=== PATIENT | male | born 1940 | race Caucasian/White ===

== ENCOUNTER 2019-07-26 15:34 | Emergency (ER) | payer MEDICARE, OTHER, SELFPAY ==
--- NOTE | ~2019-07-26 | XR_ITS ---
EXAMINATION: XR lumbar spine 2-3V DATE: 07/26/2019 17:51 INDICATION: Back pain. Fall. TECHNIQUE: 3 views of the lumbar spine were obtained. COMPARISON: CT abdomen and pelvis 05/02/2018 FINDINGS: There is 3 degrees levocurvature of lumbar spine. There are chronic bilateral L5 pars defec ts. There is 7 mm anterolisthesis of L5 on S1. There is mildly decreased disc height at L5-S1. There are endplate osteophytes at most levels. The facet joints are unremarkable. IMPRESSION: 1. Chronic bilateral L5 pars defects with grade 1 anterolisthesis of L5 on S1. 2. Mild lumbar spondylosis. Reviewed, dictated and finalized at location A.
--- NOTE | ~2019-07-26 | XR_ITS ---
EXAMINATION: XR thoracic spine 3V DATE: 07/26/2019 17:51 INDICATION: Back pain. TECHNIQUE: 3 views of thoracic spine were obtained. COMPARISON: Chest 2 views 10/12/2018 FINDINGS: There is 5 degrees levocurvature of thoracic spine. There is kyphosis of thoracic spine. Th ere is mild chronic anterior wedging of multiple thoracic vertebral bodies. Intervertebral disc heigh ts are normal in thoracic spine. There are bridging endplate osteophytes at multiple levels in the sp ine, consistent with diffuse idiopathic skeletal hyperostosis (DISH). IMPRESSION: 1. DISH. 2. Thoracic kyphosis. Reviewed, dictated and finalized at location A.
[2019-07-26 15:40] VITALS: BP 143/54; PULSE 75; RESP 12; TEMP 36.7; O2SAT 97
--- NOTE | 2019-07-26 16:06 | ECG_ITS ---
Measurements Intervals [place] Rate: 71 P: 55 [place]: 185 QRS: -19 QRSD: 97 T: 30 QT: 413 QTc: 451 Interpretive Statements SINUS RHYTHM VOLTAGE CRITERIA FOR LVH BORDERLINE ECG Electronically Signed On 07-26-2019 17:33:36 CDT by Fermin Mancia D.O.
--- NOTE | 2019-07-26 16:07 | ED.FALL ---
HPI - Fall General Chief Complaint: Fall Stated Complaint: HEAT RELATED ILLNESS Time Seen by Provider: 07/26/19 15:41 Source: patient and family Mode of arrival: EMS Limitations: no limitations History of Present Illness HPI Narrative: This patient is an 78 year old male with history of hypothyroid who presents for evaluation s/p fall. PAtient states he was out working for a while in the heat. He was trying to load his truck when he states he fell. He Denies hitting his head or losing consciousness. He states he was just unable to get up due to chronic knee problems. His states he had to lay out there for 1.5 hours until someone came to help. She also reports patient was found to have temperature with skin probe of 102. Patient has no complaints. MD complaint: fall Related Data Allergies Allergy/AdvReac Type Severity Reaction Status Date / Time No Known Allergies Allergy Verified 07/26/19 15:40 Review of Systems Review of Systems: All systems reviewed & are unremarkable except as noted in HPI and below Constitutional: Constitutional: Denies chills and Denies fever(s) ENT: Denies dysphagia and Denies dizziness Cardiovascular: Cardiovascular: Denies chest pain Respiratory: Respiratory: Denies cough and Denies dyspnea Gastrointestinal: Gastrointestinal: Denies abdominal pain and Reports nausea Genitourinary: Genitourinary: Denies oliguria and Denies urinary incontinence Neurologic: Denies dizziness PMFSH Social History Social History Gender identity (if verbalized by the patient): Male Exam Narrative: Exam Narrative: GENERAL: Well-appearing, well-nourished, and in no acute distress. HEAD: Normocephalic, atraumatic EYES: PERRLA and EOMI, conjunctiva clear without discharge EARS: TM's clear bilaterally without erythema or dullness NOSE: Nares clear, no rhinorrhea or epistaxis THROAT:Mucous membranes moist, Oropharynx normal without erythema, exudate, peritonsillar swelling or fluctuance NECK: Supple, without lymphadenopathy or mass RESPIRATORY: No respiratory distress, Airway patent, Respirations non-labored, Clear to auscultation without rales, rhonchi or wheeze HEART: Regular rate and rhythm. No murmur heard. Normal peripheral pulses. ABDOMEN: Soft, nontender, nondistended, normal active bowel sounds. No masses. No rebound or guarding, No organomegaly. EXTREMITIES: No edema, normal strength with full range of motion. SKIN: Warm, dry, NEURO: Alert and oriented x3. CN 2-12 grossly intact. No focal deficits. PSYCH: Normal mood and affect. Back/Spine/Pelvis: Other: mild abrasion to mid back, mild midline tenderness at t12 Course Reevaluation(s) Reevaluation #1: Patient states he feels fine and he has no complaints. He has been up walking around with out difficulty. He and denies any questions or concerns. Date: 07/26/19 Time: 18:40 Vital Signs Vital signs: Vital Signs Temperature 98.0 F 07/26/19 15:40 Pulse Rate 75 07/26/19 15:40 Respiratory Rate 12 07/26/19 15:40 Blood Pressure 143/54 H 07/26/19 15:40 Pulse Oximetry 97 07/26/19 15:40 Temperature 98.0 F 07/26/19 15:40 Pulse Rate 71 07/26/19 17:26 Respiratory Rate 12 07/26/19 15:40 Blood Pressure 136/57 L 07/26/19 17:26 Pulse Oximetry 97 07/26/19 15:40 MDM - Fall Lab Data Attestation: I reviewed the patient's lab results. Result diagrams: 07/26/19 16:21 07/26/19 16:21 Labs: Lab Results 07/26/19 07/26/19 Range/Units 16:21 16:21 WBC 6.7 (4.5-10.0) K/mm3 RBC 3.53 L (4.6-6.20) M/mm3 Hgb 11.6 L (14.0-18.0) g/dL Hct 34.7 L (42.0-52.0) % MCV 98.3 (80-100) fl MCH 32.9 (26-34) pg MCHC 33.4 (32-36) g/dl RDW 14.1 (11.5-14.5) % Plt Count 185 (150-375) k/mm3 MPV 9.6 (7.4-10.4) fl Immature Gran % (Auto) 0.4 (0-0.5) % Neut % (Auto) 77.8 H (45.5-73.1) % Lymph % (Auto) 12.4 L (18.3-44.2) % Bee % (Auto)
[2019-07-26] MEDS: SODIUM CHLORIDE 0.9% IV 1,000 ML 999 ML IV CONT (16:18)
[2019-07-26 16:27] LABS: Basophils Percent Auto 0.6 % (0.2-1.2); Eosinophils Absolute Auto 0.2 K/mm3 (0-0.3); Hematocrit 34.7 % (42.0-52.0); Hemoglobin 11.6 g/dL (14.0-18.0); Immature Granulocyte Absolute 0.03 K/mm3 (0.00-0.031); Immature Granulocyte Percent A 0.4 % (0-0.5); Lymphocytes Absolute Auto 0.83 K/mm3 (0.9-3.2); Lymphocytes Percent Auto 12.4 % (18.3-44.2); Mean Corpuscular HGB Conc 33.4 g/dl (32-36); Mean Corpuscular Hemoglobin 32.9 pg (26-34); Mean Corpuscular Volume 98.3 fl (80-100); Mean Platelet Volume 9.6 fl (7.4-10.4); Monocytes Absolute Auto 0.4 K/mm3 (0.1-0.6); Monocytes Percent Auto 5.8 % (2.6-8.5); Neutrophils Absolute Auto 5.2 K/mm3 (1.3-6.7); Neutrophils Percent Auto 77.8 % (45.5-73.1); Platelet Count Result 185 k/mm3 (150-375); Red Blood Count 3.53 M/mm3 (4.6-6.20); Red Cell Distribution Width 14.1 % (11.5-14.5); White Blood Count 6.7 K/mm3 (4.5-10.0)
[2019-07-26 16:38] LABS: Alanine Aminotransferase 18 U/L (4-50); Albumin Level 4.1 g/dL (3.5-5.1); Alkaline Phosphatase 92 U/L (38-126); Aspartate Amino Transferase 19 U/L (17-59); Bilirubin,Total 0.4 mg/dL (0.2-1.3); Blood Urea Nitrogen 21 mg/dL (9-20); Calcium 9.2 mg/dL (8.4-10.2); Carbon Dioxide 25 mmol/L (22-30); Chloride 103 mmol/L (98-107); Creatine Kinase 60 U/L (55-170); Estimated CRCL calculation 63 ml/min; Estimated Glomerular Filt Rate > 60; Glucose 114 mg/dL (75-110); Potassium 3.8 mmol/L (3.4-5.0); Sodium 136 mmol/L (137-145)
[2019-07-26 17:25] VITALS: BP 138/59; BP 149/59; PULSE 66; PULSE 70
[2019-07-26 17:26] VITALS: BP 136/57; PULSE 71
[2019-07-26 19:18] LABS: Add Urine Microscopic? YES; Appearance Urine Clear (Clear); Bilirubin Urine Negative (Negative); Blood Urine Negative (Negative); Color Urine Yellow (Yellow); Glucose Urine UA Negative (Negative); Ketones Urine Negative (Negative); Leukocyte Esterase Ur Negative LEU/UL (Negative); Mucus Urine Rare /lpf; Nitrate Urine Negative (Negative); Protein Urine 2+ mg/dL (Negative); RBC Urine 0-2 /hpf (0-2); Specific Grav Ur 1.014 (1.001-1.035); Squamous Epithelial Cell Urine Rare /hpf (Few); Urobilinogen Urine Negative mg/dL (<2.0); WBC Urine 0-3 /hpf
[2019-07-26 20:09] VITALS: BP 131/61; PULSE 68; RESP 20; O2SAT 100
== END 2019-07-26 20:16 | disposition home or self-care (01) ==
PROVIDERS: Emergency Provider General Practice
DX: R53.1 Weakness (principal); M47.816 Spondylosis without myelopathy or radiculopathy, lumbar region; M48.14 Ankylosing hyperostosis [Forestier], thoracic region; M40.204 Unspecified kyphosis, thoracic region; W18.30XA Fall on same level, unspecified, initial encounter; R94.31 Abnormal electrocardiogram [ECG] [EKG]
CPT/HCPCS: 36415; 72072; 72100; 80053; 81001; 82550; 83735; 85025; 93005; 96360; 99283; J7030

== ENCOUNTER 2019-08-01 13:43 | Outpatient (RCR) | payer MEDICARE, OTHER, SELFPAY ==
--- NOTE | 2019-08-01 14:26 | PTOPEVAL ---
Thank you for referring Patrice Howard to [facility]. Please review, sign, date and return this plan of care [facility]. I agree with and certify that the following plan of care is medically necessary. Referring Physician Date Admitting Provider: Attending Provider: PHYSICIAN NOT ON STAFF Referring Provider: *PT Outpatient Evaluation Start: 08/01/19 13:55 Freq: Status: Active Protocol: Document 08/01/19 13:57 MERLE (Rec: 08/01/19 14:26 MERLE [id number]) Therapy Assessment Status Assessment Status Assessment Status Evaluation Evaluation Information Problem Diagnosis high fall risk Onset 07/01/19 Subjective Information Pt. reports that he has fallen Query Text:As Reported By Patient/ twice in the past 2 months. Family He reports that his first fall was in his yard and could not get himself up. He reports that his second fall was attempting to move limbs out of his truck and he states that he laid on the ground unable to get up on his own again. He reports that he does live with his , but states that his cannot help him. He reports that his goal is to improve his balance and reduce his falls. Prior Level of Function Activity Level (Last 3 Months) Occupation retired Hand Dominance Right Activity of Daily Living Ability Independent Indoor/Home Mobility Independent Community Mobility Independent Stairs Ability Independent Functional Cognition (Planning, Shopping Needs Some Help , Taking Medications) Cooking Yes Cleaning No Laundry No Shopping Yes Driving Yes Home Setting Home Type House Environmental Barriers Stairs, 2-4 Living Situation With Spouse Support Available Local Family Support Mobility Assistive Devices (Used Last 3 None Months) Pain Assessment Self Report Self Report Pain Level 0 Pain Score Pain Score 0: Self Report Lower Extremity Muscle Strength Testing General Lower Extremity Strength Gross Lower Extremity Strength bilateral hip flexion 4/5, bilateral hip extension 4/5, bilat
== END 2019-08-30 16:34 | disposition home or self-care (01) ==
LOC: CHSPT 13:43
DX: M17.12 Unilateral primary osteoarthritis, left knee (principal); Z91.81 History of falling
CPT/HCPCS: 97110; 97112; 97161; 97530

== ENCOUNTER 2020-03-09 01:26 | Inpatient (IN) | payer MEDICARE, OTHER, SELFPAY ==
[2020-03-09] VITALS (13 sets, daily range): BP systolic 97–140; BP diastolic 40–65; PULSE 63–83; RESP 16–20; TEMP 36.3–38.4; O2SAT 90–95; BMI 23.8
--- NOTE | ~2020-03-09 | CT_ITS ---
EXAMINATION: CT brain wo con EXAM DATE: 03/09/2020 04:36 INDICATION: weakness weakness, rapid result COVID+. TECHNIQUE: Spiral CT of the head was performed without contrast. Axial, coronal and sagittal images were reviewed. The dose-length product (DLP) for this examination was 605.33 mGy-cm. The exposure w as tailored according to patient size, and iterative reconstruction (ASIR) was used as additional dos e reduction technique. Comparison is made to prior examination from 10/11/2018. FINDINGS: There is no acute intraparenchymal hemorrhage. No evidence of intraparenchymal brain mass lesion. No evidence of acute infarction. Please note that initial head CT has limited sensitivity f or small or acute infarctions. There is mild periventricular and subcortical hypodensity, nonspecific but probably related to small vessel ischemic disease. Punctate old left caudate head lacunar infarc tion. There is ventricular prominence out of proportion to sulci which is suspected most likely cent ral atrophy rather than hydrocephalus. Normal pressure hydrocephalus cannot be excluded (clinical tr iad ataxia/gait disturbance, dementia, urinary incontinence). There is intracranial carotid arterio sclerosis. There are no extra-axial collections. There is no mass effect or midline shift. Patient has had bilateral ocular lens surgery. Old left orbital fractures with surgical changes. Soft tissue is unremarkable. Moderate ethmoid mucoperiosteal thickening. IMPRESSION: 1. No acute intracranial findings. 2. Chronic age related findings. 3. 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 Reviewed, dictated and finalized at location A. PRESS OPERATOR
--- NOTE | ~2020-03-09 | XR_ITS ---
EXAMINATION: XR chest 1V portable EXAM DATE: 03/09/2020 04:36 INDICATION: weakness, rapid result COVID+ today. TECHNIQUE: Portable AP frontal chest x-ray was obtained. Comparison is made to prior examination from 10/12/2018. FINDINGS: Biapical calf pain right greater than left. Small amount of ill-defined right basilar airsp winston disease. There are no pleural effusions. Cardiac silhouette is prominent but magnified on this AP technique. There is no pneumothorax suspected. The bones and soft tissues are unremarkable. IMPRESSION: Small amount of ill-defined right basilar atelectasis or infection. Reviewed, dictated and finalized at location A. RMATION BROKER
--- NOTE | 2020-03-09 01:52 | ECG_ITS ---
Measurements Intervals [place] Rate: 91 P: 63 [place]: 173 QRS: -20 QRSD: 90 T: 32 QT: 352 QTc: 434 Interpretive Statements SINUS RHYTHM BASELINE ARTIFACT- II, III, AVF NORMAL ECG Electronically Signed On 03-09-2020 7:20:49 MERCHANDISE PROCESSOR by Fermin Mancia D.O.
--- NOTE | 2020-03-09 01:55 | ED.WEAKNESS ---
HPI - Weakness General Chief complaint: Weakness Stated complaint: Fever Time Seen by Provider: 03/09/20 01:45 Source: family Mode of arrival: EMS Limitations: no limitations History of Present Illness HPI Narrative: 79-year-old man brought in today by EMS after is called because he was unable to get out of a chair by himself. He states that has not been himself this week and was unable to get up after falling in the shower 4 days ago. He has had fever starting four days ago, but has had no chest pain, difficulty breathing, vomiting, diarrhea, cough, cold symptoms, rash, or dysuria. He has had no sick exposures. MD Complaint: generalized weakness Onset (ago): week(s) (1) Duration: constant Location: generalized Migration: none Severity: moderate Associated symptoms: fever/chills Related Data Home Medications Medication Instructions Recorded Confirmed atorvastatin 80 mg PO DAILY 03/09/20 03/09/20 cyanocobalamin (vitamin B-12) 1,000 mcg IM MONTHLY 03/09/20 03/09/20 levothyroxine 75 mcg PO DAILY 03/09/20 03/09/20 tamsulosin 0.4 mg PO DAILY 03/09/20 03/09/20 Allergies Allergy/AdvReac Type Severity Reaction Status Date / Time No Known Allergies Allergy Verified 07/26/19 15:40 Review of Systems Constitutional: Constitutional: Denies chills, Reports fever(s) and Reports weakness Eyes: Eyes: Denies change in vision and Denies photophobia ENT: Denies dysphagia, Denies nasal congestion and Denies sore throat Cardiovascular: Cardiovascular: Denies chest pain and Denies radiating jaw, neck or arm pain Respiratory: Respiratory: Denies cough and Denies dyspnea Gastrointestinal: Gastrointestinal: Denies abdominal pain, Denies diarrhea, Denies nausea and Denies vomiting Genitourinary: Genitourinary: Denies hematuria, Denies dysuria and Denies urinary frequency Musculoskeletal: Musculoskeletal: Denies arthralgias and Denies joint swelling Integumentary/Breasts: Skin/Breast: Denies pruritus, Denies erythema and Denies rash Neurologic: Denies vertigo, Denies dizziness and Denies syncope Hematologic/Lymphatic: Hematologic/Lymphatic: Denies easy bleeding and Denies easy bruising Allergic/Immunologic: Allergic/Immunologic: Denies lip swelling and Denies throat swelling PMFSH Past Medical History Medical History (Updated 03/09/20 @ 04:25 by Keith Rahman MD) BPH (benign prostatic hyperplasia) Dyslipidemia Hypothyroidism Osteoarthritis Surgical History Surgical History (Updated 03/09/20 @ 02:01 by Keith Rahman MD) H/O eye surgery H/O knee surgery left H/O shoulder surgery bilateral Social History Social History Substance use: never Living arrangements: with family Gender identity (if verbalized by the patient): Male Exam Const: General: no acute distress and alert Nutritional Appearance: well nourished Orientation/consciousness: confusion HENMT: Head: normal to inspection Face and sinus: normal facial exam Mouth: Yes moist mucous membranes Throat: posterior oropharynx normal and uvula midline Eyes: Conjunctivae: conjunctivae normal Pupils: Equal, round and reactive pupils present EOM: EOMs intact bilaterally Resp: Effort & Inspection: normal respiratory effort and not labored Auscultation: clear to auscultation bilaterally, no rales, no rhonchi and no wheezes Cardio: Rate: regular rate Rhythm: regular rhythm Heart sounds: no murmurs GI: GI Palp: Yes Soft to palpation and No Tenderness to palpation present (GI) Auscultation: normal bowel sounds Urinary Catheter: Urinary Catheter: urine dark Skin: General skin exam: normal color, no jaundice and no pallor Rashes: no rashes Neuro: General: patient oriented x3, moves all extremities, no focal motor deficits and CN's II-XI intact bilaterally Speech: normal speech Extrem: General: normal to inspection and no clubbing, cyanosis or edema Psych: Appearance: g
[2020-03-09] MEDS: SODIUM CHLORIDE 0.9% IV 1,000 ML 999 ML IV CONT (02:24)
[2020-03-09 02:40] LABS: Basophils Absolute Auto 0.01 K/mm3 (0.00-0.10); Basophils Percent Auto 0.2 % (0.0-1.0); Eosinophils Absolute Auto 0.01 K/mm3 (0.02-0.50); Eosinophils Percent Auto 0.2 % (1.0-6.0); Hemoglobin 11.4 g/dL (12.4-15.3); Immature Granulocyte Absolute 0.03 K/mm3 (0.00-0.00); Immature Granulocyte Percent A 0.5 % (0.0-0.0); Lymphocytes Absolute Auto 0.55 K/mm3 (1.10-4.50); Mean Corpuscular HGB Conc 32.6 g/dL (32.0-36.0); Mean Corpuscular Hemoglobin 31.8 pg (27.0-31.0); Mean Corpuscular Volume 97.8 fL (78.0-102.0); Mean Platelet Volume 9.4 fl (8.7-11.0); Monocytes Absolute Auto 0.45 K/mm3 (0.10-0.90); Monocytes Percent Auto 8.2 % (2.0-11.0); Neutrophils Absolute Auto 4.4 K/mm3 (1.7-7.2); Neutrophils Percent Auto 80.9 % (50.0-70.0); Platelet Count Result 189 K/mm3 (150-420); Red Blood Count 3.58 M/mm3 (4.70-6.10); Red Cell Distribution Width 13.2 % (11.6-14.4); White Blood Count 5.5 K/mm3 (4.8-10.8)
[2020-03-09 02:53] LABS: Appearance Urine Clear (Clear); Bilirubin Urine Negative (Negative); Color Urine Yellow (Yellow); Glucose Urine UA Negative (Negative); Ketones Urine Negative (Negative); Leukocyte Esterase Ur Negative LEU/UL (Negative); Nitrate Urine Negative (Negative); Protein Urine 2+ (Negative); Specific Grav Ur >= 1.030 (1.010-1.020); Urobilinogen Urine 0.2 mg/dL (0.2-1.0)
--- NOTE | 2020-03-09 02:54 | PC.NURSE ---
0254- Patient is resting/sleeping.
[2020-03-09 03:10] LABS: Alanine Aminotransferase 26 U/L (16-63); Albumin Level 3.2 g/dL (3.4-5.0); Alkaline Phosphatase 88 U/L (46-116); Anion Gap 10 mmol/L (8-16); Aspartate Amino Transferase 17 U/L (15-37); Bilirubin,Total 0.4 mg/dL (0.00-1.00); Blood Urea Nitrogen 15 mg/dL (7-18); CRP 8.3 mg/dL (0.0-0.9); Calcium 8.3 mg/dL (8.5-10.1); Carbon Dioxide 26 mmol/L (21-32); Chloride 100 mmol/L (98-108); Estimated Glomerular Filt Rate > 60; Glucose 122 mg/dL (70-99); Osmolality Calculated 283 mOsm/kg (285-295); Potassium 3.8 mmol/L (3.5-5.1); Sodium 136 mmol/L (136-145); Total Protein 7.5 g/dL (6.4-8.2)
[2020-03-09 03:12] LABS: Lactic Acid Reflex 1.2 mmol/L (0.4-2.0)
--- NOTE | 2020-03-09 03:43 | PC.NURSE ---
pt sleeping, in lobby awaiting lab/covid results. explained delay, voiced understanding. xray staff notified of delay.
[2020-03-09 03:50] LABS: Add Urine Microscopic? YES; Blood Urine Trace-Intact (Negative)
[2020-03-09 03:51] LABS: Amorphous Sediment Urine Heavy; RBC Urine 0-2 /hpf (0-2); Squamous Epithelial Cell Urine Occasional /hpf (Few)
[2020-03-09 04:04] LABS: Influenza Control Valid (Valid); SARS-CoV-2 Ag Positive (Negative)
[2020-03-09 04:06] LABS: Troponin I 14.5 ng/L (0.00-60.4)
[2020-03-09 04:24] LABS: Prothrombin Time 10.6 Seconds (9.50-12.10)
[2020-03-09 04:31] LABS: Salicylate 0.6 mg/dL (2.8-20.0)
[2020-03-09 04:32] LABS: Amphetamine Screen Urine Negative (Negative); Barbiturate Screen Urine Negative (Negative); Benzodiazepines Screen Urine Negative (Negative); Cannabinoid Screen Urine Negative (Negative); Cocaine Screen Urine Negative (Negative); Methadone Screen Urine Negative (Negative); Opiate Screen Urine Negative (Negative); Phencyclidine Screen Urine Negative (Negative)
[2020-03-09 04:32] LABS: Acetaminophen < 2 ug/mL (10-30); Ethanol < 3 mg/dL (0-6)
--- NOTE | 2020-03-09 04:45 | PC.NURSE ---
notified of lab/covid results, explained quarantine and to call [facility] today as she was scheduled to receive covid vaccine today. allowed to speak with patient per phone prior to departing facility
[2020-03-09] MEDS: SODIUM CHLORIDE 0.9% IV 1,000 ML 150 ML IV CONT (06:00)
--- NOTE | 2020-03-09 06:08 | PC.NURSE ---
anish updated on pt status and admission.
--- NOTE | 2020-03-09 06:29 | ADMGEN ---
This patient, Patrice Howard, was admitted to 2nd Floor Room 210-1. Patient/family oriented to hospital policies and general routines including ID bracelet, bed and alarms, visiting hours, pain management, procedures, bathroom and other care routines, personal items, smoking policy, room service/diet, and visiting hours. Information on how to activate the Rapid Response Team has been discussed. Patient/Family are encouraged to report perceived risks to care and to ask questions if they do not understand what they are told or what they should do. Pt assisted in moving self to bed from ER cot, answers all questions appropriately at this time and denies any pain. Pt. is currently A&Ox3. VSS. Call limon placed in reach of pt. and pt. watching TV. IVF started as per order.
--- NOTE | 2020-03-09 08:33 | PM.IMHP ---
H&P: HPI History of Present Illness Date/Time: 03/09/20 08:33 Chief Complaint: generalized weakness (COVID positive) Narrative: Patrice Howard is a 79 year old male who came to the hospital after his found that he was having difficulty getting out of a chair at home. Patient had been feeling weak a few days prior to this. Patient did have fevers that started approximately 4 days prior. Documentation from the ER states the patient had fallen in the shower a couple days earlier and was unable to get up. There were no other complaints such as chills, abdominal pain, flu-like symptoms, N/V/D. Patient was found to be COVID positive as of 03/09/2020 Review of Systems Constitutional: Constitutional: Reports no additional constitutional complaints, Denies body ache(s), Denies chills, Denies headache(s) and Reports weakness Cardiovascular: Cardiovascular: Reports no additional cardiovascular complaints, Denies chest pain, Denies chest pain at rest and Denies chest pain with activity Respiratory: Respiratory: Reports no additional respiratory complaints and Denies dyspnea Gastrointestinal: Comments: Patient admits that he has been incontinent of stool. Genitourinary: Comments: Patient admits that he has been incontinent of urine and is unable to tell if he can or needs to go and at times he still has difficulty starting a stream. Musculoskeletal: Musculoskeletal: Reports muscle weakness PMFSH Past Medical History Medical History (Updated 03/09/20 @ 08:43 by HASMUKH Pfeiffer) Anemia BPH (benign prostatic hyperplasia) Dyslipidemia Hypothyroidism Osteoarthritis Surgical History Surgical History H/O eye surgery H/O knee surgery left H/O shoulder surgery bilateral Social History Social History Smoking status: Former smoker Alcohol intake: current Drinks per week: 10 Substance use: never Substance use type: does not use Living arrangements: with family Gender identity (if verbalized by the patient): Male Spiritual care concerns: Yes (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) Meds Home Medications and Allergies Home Medications Medication Instructions Recorded Confirmed Type atorvastatin 80 mg PO DAILY 03/09/20 03/09/20 History cyanocobalamin (vitamin B-12) 1,000 mcg IM MONTHLY 03/09/20 03/09/20 History levothyroxine 75 mcg PO DAILY 03/09/20 03/09/20 History tamsulosin 0.4 mg PO DAILY 03/09/20 03/09/20 History Allergies Allergy/AdvReac Type Severity Reaction Status Date / Time No Known Allergies Allergy Verified 07/26/19 15:40 Vital Signs Vital Signs - 24 hr 03/09/20 01:27 03/09/20 02:00 03/09/20 04:48 Temperature 99.6 F Pulse Rate 82 72 81 Respiratory Rate 20 20 Blood Pressure 140/65 131/51 L Pulse Oximetry 94 93 03/09/20 05:25 03/09/20 06:00 03/09/20 07:55 Temperature 97.3 F L 99.0 F 98.8 F Pulse Rate 71 78 71 Respiratory Rate 20 20 20 Blood Pressure 123/53 L 132/52 L 123/60 Pulse Oximetry 95 95 95 Exam Const: General: cooperative, comfortable, no acute distress, alert and awake Nutritional Appearance: average body habitus Resp: Effort & Inspection: normal respiratory effort Auscultation: clear to auscultation bilaterally and diminished lung sounds Cardio: Rate: regular rate Heart sounds: S1 normal heart sound present and S2 normal heart sound present GI: GI Palp: Yes Soft to palpation and No Tenderness to palpation present (GI) Auscultation: normal bowel sounds Neuro: General: oriented to person, oriented to place and oriented to time Cranial nerves: Yes CN's II-XII intact bilaterally (grossly intact) Cognition (Neuro): normal cognition Speech: normal speech Extrem: General: no pedal edema H&P: Results Labs Labs: Short CBC 03/09/20 Range/Units 02:34 WBC 5.5 (4.8-10.8) K/mm3 Hgb 11.4 L (12.4-15.3) g/dL
[2020-03-09] MEDS: ENOXAPARIN 30 MG/0.3 ML SYRINGE SUB-Q ×2 (09:09→21:18)
[2020-03-09] MEDS: ATORVASTATIN 40 MG TABLET 80 MG PO (09:09)
[2020-03-09] MEDS: LEVOTHYROXINE SODIUM 75 MCG TABLET PO (09:09)
[2020-03-09] MEDS: TAMSULOSIN HCL 0.4 MG CAPSULE PO (09:10)
[2020-03-09] MEDS: ACETAMINOPHEN 325 MG TABLET PO ×2 (18:20→22:09)
[2020-03-10] VITALS (7 sets, daily range): BP systolic 107–143; BP diastolic 47–56; PULSE 62–82; RESP 18; TEMP 35.9–37.6; O2SAT 88–98
[2020-03-10 05:54] LABS: Hematocrit 31.9 % (37.0-46.0); Hemoglobin 10.3 g/dL (12.4-15.3); Mean Corpuscular HGB Conc 32.3 g/dL (32.0-36.0); Mean Corpuscular Hemoglobin 31.9 pg (27.0-31.0); Mean Corpuscular Volume 98.8 fL (78.0-102.0); Mean Platelet Volume 9.5 fl (8.7-11.0); Platelet Count Result 164 K/mm3 (150-420); Red Blood Count 3.23 M/mm3 (4.70-6.10); Red Cell Distribution Width 13.4 % (11.6-14.4); White Blood Count 3.7 K/mm3 (4.8-10.8)
[2020-03-10 06:03] LABS: Anion Gap 8 mmol/L (8-16); Blood Urea Nitrogen 10 mg/dL (7-18); Calcium 7.5 mg/dL (8.5-10.1); Carbon Dioxide 25 mmol/L (21-32); Chloride 102 mmol/L (98-108); Estimated CRCL calculation 63 ml/min; Estimated Glomerular Filt Rate > 60; Glucose 89 mg/dL (70-99); Osmolality Calculated 278 mOsm/kg (285-295); Potassium 3.5 mmol/L (3.5-5.1); Sodium 135 mmol/L (136-145)
--- NOTE | 2020-03-10 08:49 | PM.IMHP ---
H&P: HPI History of Present Illness Date/Time: 03/10/20 08:49 <IRIS Chaudhry - Last Filed: 03/10/20 09:10> Chief Complaint: Generalized weakness <IRIS Chaudhry - Last Filed: 03/10/20 09:10> Narrative: This is a progress note not a H&P Patrice Howard is a 79 year old male that presented to our ED with generalized weakness who tested positive for Covid. Patient has a past medical history of anemia, BPH, dyslipidemia, hypothyroidism, and osteoarthritis. According to patient his called EMS because she became panicked. Patient is unsure of why his became panicked but according to the notes patient appeared to be weak for several days and had a fever for approximately 1 week patient C-reactive protein was elevated to 8.3 and he tested positive for Covid. His WBC and lactic acid was within normal limits his chest x-ray indicated-Small amount of ill-defined right basilar atelectasis or infection. His CT did not indicate any new infarcts. Patient is being admitted for generalized weakness Covid positive Started patient on dexamethasone according to nursing staff patient experienced shortness of breath overnight patient is currently 2 L nasal cannula This document was completed by using [employer] speech recognition software, therefore deck lid fitter variances may occur. Despite proofreading, typographical errors may also occur. <IRIS Chaudhry - Last Filed: 03/10/20 09:10> Review of Systems Review of Systems: All systems reviewed & are unremarkable except as noted in HPI and below (10 point system review) <IRIS Chaudhry - Last Filed: 03/10/20 09:10> [facility] Past Medical History Medical History: Medical History (Updated 03/09/20 @ 08:43 by HASMUKH Pfeiffer) Anemia BPH (benign prostatic hyperplasia) Dyslipidemia Hypothyroidism Osteoarthritis <IRIS Chaudhry - Last Filed: 03/10/20 09:10> Surgical History Surgical History: Surgical History H/O eye surgery H/O knee surgery left H/O shoulder surgery bilateral <IRIS Chaudhry - Last Filed: 03/10/20 09:10> Social History Social History: Social History Smoking status: Former smoker Alcohol intake: current Drinks per week: 10 Substance use: never Substance use type: does not use Living arrangements: with family Gender identity (if verbalized by the patient): Male Spiritual care concerns: Yes (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) <IRIS Chaudhry - Last Filed: 03/10/20 09:10> Meds Home Medications and Allergies Home medications: Home Medications Medication Instructions Recorded Confirmed Type atorvastatin 80 mg PO DAILY 03/09/20 03/09/20 History cyanocobalamin (vitamin B-12) 1,000 mcg IM MONTHLY 03/09/20 03/09/20 History levothyroxine 75 mcg PO DAILY 03/09/20 03/09/20 History tamsulosin 0.4 mg PO DAILY 03/09/20 03/09/20 History <IRIS Chaudhry - Last Filed: 03/10/20 09:10> Allergies/Adverse reactions: Allergies Allergy/AdvReac Type Severity Reaction Status Date / Time No Known Allergies Allergy Verified 07/26/19 15:40 <IRIS Chaudhry - Last Filed: 03/10/20 09:10> Vital Signs Vital Signs - 24 hr 03/09/20 15:55 03/09/20 17:20 03/09/20 18:20 Temperature 99.8 F H 101.2 F H 100.2 F H Pulse Rate 83 Respiratory Rate 18 Blood Pressure 129/60 Pulse Oximetry 92 03/09/20 19:15 03/09/20 19:46 03/09/20 22:09 Temperature 101.1 F H 101.1 F H 101.1 F H Pulse Rate 80 Respiratory Rate 18 Blood Pressure 97/40 L Pulse Oximetry 90 03/09/20 22:20 03/10/20 00:00 03/10/20 00:30 Temperature 101.1 F H 99.1 F Pulse Rate 63 77 82 Respiratory Rate 16 18 18 Blood Pressure 108/47 L 113/52 L Pulse Oximetry 94 88 L 94 03/10/20 00:50 03/10/20 0
[2020-03-10] MEDS: ATORVASTATIN 40 MG TABLET 80 MG PO (09:01)
[2020-03-10] MEDS: ENOXAPARIN 30 MG/0.3 ML SYRINGE SUB-Q ×2 (09:01→20:02)
[2020-03-10] MEDS: LEVOTHYROXINE SODIUM 75 MCG TABLET PO (09:01)
[2020-03-10] MEDS: TAMSULOSIN HCL 0.4 MG CAPSULE PO (09:01)
[2020-03-10] MEDS: DEXAMETHASONE 2 MG TABLET 6 MG PO (09:01)
[2020-03-11] VITALS: BP 150/73; PULSE 65; RESP 18; TEMP 36.6; O2SAT 93
[2020-03-11 05:48] LABS: Hematocrit 34.4 % (37.0-46.0); Hemoglobin 10.9 g/dL (12.4-15.3); Mean Corpuscular HGB Conc 31.7 g/dL (32.0-36.0); Mean Corpuscular Hemoglobin 31.1 pg (27.0-31.0); Mean Corpuscular Volume 98.3 fL (78.0-102.0); Mean Platelet Volume 9.7 fl (8.7-11.0); Platelet Count Result 199 K/mm3 (150-420); Red Cell Distribution Width 13.2 % (11.6-14.4); White Blood Count 3.9 K/mm3 (4.8-10.8)
[2020-03-11 06:04] LABS: Alanine Aminotransferase 39 U/L (16-63); Albumin Level 2.8 g/dL (3.4-5.0); Alkaline Phosphatase 75 U/L (46-116); Anion Gap 8 mmol/L (8-16); Aspartate Amino Transferase 24 U/L (15-37); Bilirubin,Total 0.3 mg/dL (0.00-1.00); Blood Urea Nitrogen 11 mg/dL (7-18); Calcium 8.2 mg/dL (8.5-10.1); Carbon Dioxide 26 mmol/L (21-32); Chloride 102 mmol/L (98-108); Estimated CRCL calculation 63 ml/min; Estimated Glomerular Filt Rate > 60; Glucose 140 mg/dL (70-99); Magnesium 2.1 mg/dL (1.8-2.4); Osmolality Calculated 283 mOsm/kg (285-295); Potassium 4.2 mmol/L (3.5-5.1); Sodium 136 mmol/L (136-145); Total Protein 6.3 g/dL (6.4-8.2)
[2020-03-11 08:00] VITALS: BP 98/52; PULSE 59; RESP 18; TEMP 36.4; O2SAT 94
[2020-03-11] MEDS: ENOXAPARIN 30 MG/0.3 ML SYRINGE SUB-Q (09:21)
[2020-03-11] MEDS: TAMSULOSIN HCL 0.4 MG CAPSULE PO (09:22)
[2020-03-11] MEDS: DEXAMETHASONE 2 MG TABLET 6 MG PO (09:22)
[2020-03-11] MEDS: ATORVASTATIN 40 MG TABLET 80 MG PO (09:22)
[2020-03-11] MEDS: LEVOTHYROXINE SODIUM 75 MCG TABLET PO (09:22)
--- NOTE | 2020-03-11 11:07 | P.DS_ITS ---
DS: Admitting Diagnosis Admitting Diagnosis Admitting Diagnosis: Generalized weakness <Krystle Pressley ANGIC - Last Filed: 03/11/20 11:14> DS: Discharge Diagnosis Discharge Diagnosis (1) Anemia: Qualifiers: Anemia type: B12 deficiency Vitamin B12 deficiency anemia type: unspecified B12 deficiency Qualified Code(s): D51.9 - Vitamin B12 deficiency anemia, unspecified <Krystle Pressley ANGIC - Last Filed: 03/11/20 11:14> Code(s): D64.9 - Anemia, unspecified <AUSTEN Chaudhry-C - Last Filed: 03/11/20 11:14> Status: Acute <IRIS Chaudhry - Last Filed: 03/11/20 11:14> Assessment and Plan: * Baseline H&H appears to be 11 and 35. Currently 10.9 and 34.4 * No active bleeding noted * Continue B12 shots <Krystle Pressley IRIS - Last Filed: 03/11/20 11:14> (2) BPH (benign prostatic hyperplasia): Qualifiers: Lower urinary tract symptom detail: unspecified <Krystle Pressley AUSTEN-C - Last Filed: 03/11/20 11:14> Code(s): N40.0 - Benign prostatic hyperplasia without lower urinary tract symptoms <Krystle Pressley ANGIC - Last Filed: 03/11/20 11:14> Status: Acute <Krystle Pressley ANGIC - Last Filed: 03/11/20 11:14> Assessment and Plan: * Continue Flomax <Krystle Pressley ANGIC - Last Filed: 03/11/20 11:14> (3) Weakness: Code(s): R53.1 - Weakness <Krystle Pressley AUSTEN-C - Last Filed: 03/11/20 11:14> Status: Acute <Krystle Pressley IRIS - Last Filed: 03/11/20 11:14> Assessment and Plan: * PT/OT eval completed * Exhibit tolerance during physical activity as evidenced by a normal fluctuation of vital signs during physical activity. * Patient will be ability to perform required activities of daily living. * Provide appropriate nutrition for healing and strength. * Use appropriate to prevent falls. <AUSTEN Chaudhry-C - Last Filed: 03/11/20 11:14> (4) COVID-19: Code(s): U07.1 - COVID-19 <AUSTEN Chaudhry-C - Last Filed: 03/11/20 11:14> Status: Acute <IRIS Chaudhry - Last Filed: 03/11/20 11:14> Assessment and Plan: * Tested positive on 03/09/2020 off quarantine 03/18/2020 * Continue dexamethasone drop * Will discharge with inhaler * Chest x-ray indicate Small amount of ill-defined right basilar atelectasis or infection. <IRIS Chaudhry - Last Filed: 03/11/20 11:14> (5) Dehydration: Code(s): E86.0 - Dehydration <AUSTEN Chaudhry-C - Last Filed: 03/11/20 11:14> Status: Acute <IRIS Chaudhry - Last Filed: 03/11/20 11:14> Assessment and Plan: * Resolved * Patient received in 1 L in ED, continue 150 mL's per hour <AUSTEN Chaudhry-Su - Last Filed: 03/11/20 11:14> (6) Dyslipidemia: Code(s): E78.5 - Hyperlipidemia, unspecified <Krystle Pressley AUSTEN-C - Last Filed: 03/11/20 11:14> Status: Acute <Krystle Pressley AUSTEN-Su - Last Filed: 03/11/20 11:14> Assessment and Plan: * Continue statins <Krystle Pressley AUSTEN-C - Last Filed: 03/11/20 11:14> (7) Hypothyroidism: Qualifiers: Hypothyroidism type: unspecified Qualified Code(s): E03.9 - Hypothyroidism, unspecified <Krystle Pressley AUSTEN-C - Last Filed: 03/11/20 11:14> Code(s): E03.9 - Hypothyroidism, unspecified <Krystle Pressley AUSTEN-C - Last Filed: 03/11/20 11:14> Status: Acute <NICK ChaudhryP-C - Last Filed: 03/11/20 11:14> Assessment and Plan: *
--- NOTE | 2020-03-11 11:07 | PM.DS ---
DS: Admitting Diagnosis Admitting Diagnosis Admitting Diagnosis: Generalized weakness <Krystle Pressley AUSTEN-C - Last Filed: 03/11/20 11:14> DS: Discharge Diagnosis Discharge Diagnosis (1) Anemia: Qualifiers: Anemia type: B12 deficiency Vitamin B12 deficiency anemia type: unspecified B12 deficiency Qualified Code(s): D51.9 - Vitamin B12 deficiency anemia, unspecified <Krystle Pressley [employer]NAGER [employer]-C - Last Filed: 03/11/20 11:14> Code(s): D64.9 - Anemia, unspecified <Krystle Pressley MANAGER [employer]-C - Last Filed: 03/11/20 11:14> Status: Acute <Krystle Pressley [employer]NAGER [employer]-C - Last Filed: 03/11/20 11:14> Assessment and Plan: Baseline H&H appears to be 11 and 35. Currently 10.9 and 34.4 No active bleeding noted Continue B12 shots <Krystle Pressley MANAGER [employer]-C - Last Filed: 03/11/20 11:14> (2) BPH (benign prostatic hyperplasia): Qualifiers: Lower urinary tract symptom detail: unspecified <Krystle Pressley MANAGER [employer]-C - Last Filed: 03/11/20 11:14> Code(s): N40.0 - Benign prostatic hyperplasia without lower urinary tract symptoms <Krystle Pressley AUSTEN-C - Last Filed: 03/11/20 11:14> Status: Acute <Krystle Pressley MANAGER [employer]-C - Last Filed: 03/11/20 11:14> Assessment and Plan: Continue Flomax <Krystle Pressley MANAGER [employer]-C - Last Filed: 03/11/20 11:14> (3) Weakness: Code(s): R53.1 - Weakness <Krystle Pressley MANAGER [employer]-C - Last Filed: 03/11/20 11:14> Status: Acute <Krystle Pressley MANAGER [employer]-C - Last Filed: 03/11/20 11:14> Assessment and Plan: PT/OT eval completed Exhibit tolerance during physical activity as evidenced by a normal fluctuation of vital signs during physical activity. Patient will be ability to perform required activities of daily living. Provide appropriate nutrition for healing and strength. Use appropriate to prevent falls. <AUSTEN Chaudhry-C - Last Filed: 03/11/20 11:14> (4) COVID-19: Code(s): U07.1 - COVID-19 <AUSTEN Chaudhry-C - Last Filed: 03/11/20 11:14> Status: Acute <AUSTEN Chaudhry-C - Last Filed: 03/11/20 11:14> Assessment and Plan: Tested positive on 03/09/2020 off quarantine 03/18/2020 Continue dexamethasone drop Will discharge with inhaler Chest x-ray indicate Small amount of ill-defined right basilar atelectasis or infection. <Krystle Pressley AUSTEN-C - Last Filed: 03/11/20 11:14> (5) Dehydration: Code(s): E86.0 - Dehydration <Krystle Pressley AUSTEN-C - Last Filed: 03/11/20 11:14> Status: Acute <Krystle Pressley AUSTEN-C - Last Filed: 03/11/20 11:14> Assessment and Plan: Resolved Patient received in 1 L in ED, continue 150 mL's per hour <Krystle Pressley AUSTEN-C - Last Filed: 03/11/20 11:14> (6) Dyslipidemia: Code(s): E78.5 - Hyperlipidemia, unspecified <Krystle Pressley AUSTEN-C - Last Filed: 03/11/20 11:14> Status: Acute <Krystle Pressley AUSTEN-C - Last Filed: 03/11/20 11:14> Assessment and Plan: Continue statins <Krystle Pressley MANAGER [employer]-C - Last Filed: 03/11/20 11:14> (7) Hypothyroidism: Qualifiers: Hypothyroidism type: unspecified Qualified Code(s): E03.9 - Hypothyroidism, unspecified <Krystle Pressley AUSTEN-C - Last Filed: 03/11/20 11:14> Code(s): E03.9 - Hypothyroidism, unspecified <Krystle Pressley MANAGER [employer]-C - Last Filed: 03/11/20 11:14> Status: Acute <Krystle Pressley MANAGER [employer]-C - Last Filed: 03/11/20 11:14> Assessment and Plan: Continue Synthroid 75 MCG's daily <IRIS Chaudhry - Last Filed: 03/11/20 11:14> DS: Summary Hospital Course Reason for hospitalization: Generalized weakness <IRIS Chaudhry - Last Filed: 03/11/20 11:14> Hospital Course: Patirce Howard is a 79 year old male that presented to our ED with generalized weakness who tested positive for
--- NOTE | 2020-03-11 11:45 | PC.NURSE ---
Patient given discharge instructions and he verbalizes understanding.
--- NOTE | 2020-03-11 13:14 | PC.NURSE ---
Patient and belongings sent with patient via wifes vehicle. Saline lock was dc'd and patient and were told how to watch for s/s of infection and they verbalized understanding. All discharge instructions given to patient and and they verbalize understanding.
--- NOTE | 2020-03-12 11:11 | PC.NURSE ---
Pt's states she received and understands the discharge instructions. She also states you girls were perfect .
== END 2020-03-11 13:11 | disposition home health service (06) | DRG 179 ==
LOC: CHSED 04:15 → CHS2ND 06:09
PROVIDERS: Nurse Practitioner; Nurse Practitioner Family; Admitting Provider Emergency Medicine; Emergency Provider Emergency Medicine; Visit Provider Emergency Medicine
DX: U07.1 COVID-19 (principal); E86.0 Dehydration; D51.9 Vitamin B12 deficiency anemia, unspecified; E78.5 Hyperlipidemia, unspecified; E03.9 Hypothyroidism, unspecified; N40.0 Benign prostatic hyperplasia without lower urinary tract symptoms; M19.90 Unspecified osteoarthritis, unspecified site; Z87.891 Personal history of nicotine dependence
CPT/HCPCS: 36415; 70450; 71045; 80048; 80053; 80307; 81001; 83605; 83735; 84484; 85025; 85027; 85610; 85730; 86140; 87040; 87086; 87426; 87804; 93005; 96360; 96361; 96372; 97110; 97161; 97165; 97530; 97535; 99285; A9270; C9803; G0378; G0379; J1650; J7030; J8540

== ENCOUNTER 2020-03-12 14:52 | Inpatient (IN) | payer MEDICARE, OTHER, SELFPAY ==
[2020-03-12] VITALS (16 sets, daily range): BP systolic 128–150; BP diastolic 44–70; PULSE 62–80; RESP 12–28; TEMP 36.6–37.7; O2SAT 95–100; BMI 24.7
--- NOTE | ~2020-03-12 | XR_ITS ---
XR chest 1V portable DATE: 03/12/2020 16:09 INDICATION: Shortness of breath TECHNIQUE: Portable AP chest on 03/12/2020 at 1604 hours COMPARISON: Portable AP chest on 03/09/2020 at 0420 hours 10/12/2018 AP and lateral chest 10/11/2018 CT pulmonary scan FINDINGS: Severe chronic bilateral apical capping is again noted, right greater than left. There are extensive patchy bilateral pulmonary infiltrates throughout both lungs, involving particula rly the mid and lower lung zones, right greater than left. Differential diagnosis includes bilateral pneumonia and/or pulmonary edema. No significant pleural effusion or any pneumothorax is evident. Heart size appears within normal range. There is aortic arch calcification. There is diffuse osteopenia. Degenerative spurring of the thoracic spine. IMPRESSION: Extensive patchy bilateral pulmonary infiltrates; differential diagnosis includes pneumon ia and pulmonary edema Reviewed, dictated and finalized at location [facility]. [facility] CHECKER IMPRESSION: Extensive patchy bilateral pulmonary infiltrates; differential diag nosis includes pneumonia and pulmonary edema
[2020-03-12] MEDS: SODIUM CHLORIDE 0.9% IV 1,000 ML 999 ML IV CONT (15:46)
[2020-03-12 15:51] LABS: Alveolar/Arterial O2 Gradient 100.8 mmHg; Base Excess ABG -1.8 mEq/l (+/-2.0); Fractional Inspired Oxygen 28 %; HCO3 ABG 20.2 mEq/l (22.0-26.0); Oxygen Content ABG 15.3 %vol (16.0-22.0); Oxygen Saturation ABG 95.3 % (95.0-100.0); Oxyhemoglobin 93.4 % THb (90.0-100.0); PCO2 ABG 26.4 mmHg (35.0-45.0); PO2 ABG 67.7 mmHg (80.0-100.0); PO2 FiO2 Ratio Arterial Blood 2.42 %; Total Hemoglobin 11.6 g/dL (12.0-18.0); pH ABG 7.501 (7.350-7.450)
[2020-03-12 15:52] LABS: Site Drawn LEFT BRACHIAL
[2020-03-12 15:53] LABS: Device NASAL CANNULA
[2020-03-12 16:28] LABS: Add Urine Microscopic? YES; Appearance Urine Clear (Clear); Bilirubin Urine Negative (Negative); Blood Urine 1+ (Negative); Color Urine Yellow (Yellow); Glucose Urine UA 1+ mg/dL (Negative); Ketones Urine Negative (Negative); Leukocyte Esterase Ur Negative LEU/UL (Negative); Mucus Urine Rare /lpf; Nitrate Urine Negative (Negative); Protein Urine 2+ mg/dL (Negative); RBC Urine 21-50 /hpf (0-2); Specific Grav Ur 1.016 (1.001-1.035); Urobilinogen Urine Negative mg/dL (<2.0); WBC Urine 0-3 /hpf
[2020-03-12 16:46] LABS: Hematocrit 34.2 % (42.0-52.0); Hemoglobin 11.4 g/dL (14.0-18.0); Immature Granulocyte Absolute 0.04 K/mm3 (0.00-0.031); Immature Granulocyte Percent A 0.6 % (0-0.5); Lymphocytes Absolute Auto 0.32 K/mm3 (0.9-3.2); Lymphocytes Percent Auto 4.4 % (18.3-44.2); Mean Corpuscular HGB Conc 33.3 g/dl (32-36); Mean Corpuscular Hemoglobin 32.3 pg (26-34); Mean Corpuscular Volume 96.9 fl (80-100); Mean Platelet Volume 9.5 fl (7.4-10.4); Monocytes Absolute Auto 0.5 K/mm3 (0.1-0.6); Monocytes Percent Auto 6.5 % (2.6-8.5); Neutrophils Absolute Auto 6.4 K/mm3 (1.3-6.7); Neutrophils Percent Auto 88.5 % (45.5-73.1); Platelet Count Result 218 k/mm3 (150-375); Red Blood Count 3.53 M/mm3 (4.6-6.20); Red Cell Distribution Width 13.6 % (11.5-14.5); White Blood Count 7.2 K/mm3 (4.5-10.0)
--- NOTE | 2020-03-12 16:48 | ECG_ITS ---
Measurements Intervals [place] Rate: 78 P: 53 [place]: 162 QRS: -17 QRSD: 93 T: 41 QT: 348 QTc: 398 Interpretive Statements SINUS RHYTHM VOLTAGE CRITERIA FOR LVH BASELINE ARTIFACT- II, III, AVR, AVF, V1, V6 BORDERLINE ECG Electronically Signed On 03-12-2020 18:46:09 EVENT SPECIALIST by Fermin Mancia D.O.
[2020-03-12 16:57] LABS: Anion Gap 3 mmol/L (8-16); Blood Urea Nitrogen 16 mg/dL (9-20); Calcium 8.2 mg/dL (8.4-10.2); Carbon Dioxide 28 mmol/L (22-30); Chloride 103 mmol/L (98-107); Estimated CRCL calculation 61 ml/min; Estimated Glomerular Filt Rate > 60; Glucose 81 mg/dL (75-110); Sodium 134 mmol/L (137-145)
--- NOTE | 2020-03-12 17:18 | ED.GENADULT ---
HPI - General Adult General Chief complaint: Altered Mental Status Stated complaint: altered mental Time Seen by Provider: 03/12/20 15:07 History of Present Illness HPI narrative: Patient is an 79-year-old male who presents ER with shortness of breath. Patient released yesterday from [facility] after short hospitalization for COVID-19. Patient has taken his dexamethasone today. Per family he is acting even more confused than he has been over the last week since becoming ill. Patient found to be hypoxic and placed on supplemental oxygen. Related Data Home Medications Medication Instructions Recorded Confirmed atorvastatin 80 mg PO DAILY 03/09/20 03/09/20 cyanocobalamin (vitamin B-12) 1,000 mcg IM MONTHLY 03/09/20 03/09/20 levothyroxine 75 mcg PO DAILY 03/09/20 03/09/20 tamsulosin 0.4 mg PO DAILY 03/09/20 03/09/20 Allergies Allergy/AdvReac Type Severity Reaction Status Date / Time No Known Allergies Allergy Verified 07/26/19 15:40 Review of Systems Review of Systems: ROS unobtainable: Yes unobtainable due to medical condition [facility] Past Medical History Medical History (Updated 03/12/20 @ 17:27 by John Hubbard MD) Anemia BPH (benign prostatic hyperplasia) Dyslipidemia Hypothyroidism Osteoarthritis Surgical History Surgical History H/O eye surgery H/O knee surgery left H/O shoulder surgery bilateral Social History Social History Smoking status: Former smoker Alcohol intake: current Drinks per week: 10 Substance use: never Substance use type: does not use Gender identity (if verbalized by the patient): Male Spiritual care concerns: Yes (Has marketing designer and would like called if needed) Exam Narrative: Exam Narrative: GENERAL: Well-appearing, well-nourished, and in no acute distress. HEAD: Normocephalic, atraumatic. EYES: PERRL and EOMI. CHEST: Clear to auscultation. No respiratory distress. HEART: Regular rate and rhythm. Normal peripheral pulses. ABDOMEN: Soft, nontender, nondistended. EXTREMITIES: Normal range of motion. No edema. SKIN: Warm, dry, no rash. NEURO: No focal deficits. Alert and oriented x1. Course Course Emergency Course: Patient resting comfortably with oxygen. He is very confused and is only oriented to self and the president. He seems to have severe Covid and I have discussed with the hospital service about admitting him and they will decide on potentially putting him on remdesivir. Vital Signs Vital signs: Vital Signs Temperature 99.9 F H 03/12/20 15:00 Pulse Rate 80 03/12/20 15:00 Respiratory Rate 28 H 03/12/20 15:00 Blood Pressure 137/67 03/12/20 15:00 Pulse Oximetry 100 03/12/20 15:00 Temperature 99.9 F H 03/12/20 15:00 Pulse Rate 80 03/12/20 15:00 Respiratory Rate H 03/12/20 15:00 Blood Pressure 137/67 03/12/20 15:00 Pulse Oximetry 100 03/12/20 15:00 Medical Decision Making Vital Signs Vital Signs: Vital Signs Temperature 99.9 F H 03/12/20 15:00 Pulse Rate 80 03/12/20 15:00 Respiratory Rate 28 H 03/12/20 15:00 Blood Pressure 137/67 03/12/20 15:00 Pulse Oximetry 100 03/12/20 15:00 Temperature 99.9 F H 03/12/20 15:00 Pulse Rate 80 03/12/20 15:00 Respiratory Rate H 03/12/20 15:00 Blood Pressure 137/67 03/12/20 15:00 Pulse Oximetry 100 03/12/20 15:00 Lab Data Result diagrams: 03/12/20 16:38 03/12/20 16:38 Labs: Lab Results 03/12/20 03/12/20 03/12/20 Range/Units 16:16 16:38 16:38 WBC 7.2 (4.5-10.0) K/mm3 RBC 3.53 L (4.6-6.20) M/mm3 Hgb 11.4 L (14.0-18.0) g/dL Hct 34.2 L (42.0-52.0) % MCV 96.9 (80-100) fl MCH 32.3 (26-34) pg MCHC 33.3 (32-36) g/dl RDW 13.6 (11.5-14.5) % Plt Count 218 (150-375) k/mm3 MPV 9.5 (7.4-10.4) fl Immature Gran % (Auto) 0.6 H (0-0.5)
--- NOTE | 2020-03-12 18:26 | PC.NURSE ---
This patient, Patrice Howard, was admitted to [facility] Surg Room 324-01. Patient/family oriented to hospital policies and general routines including ID bracelet, bed and alarms, visiting hours, pain management, procedures, bathroom and other care routines, personal items, smoking policy, room service/diet, and visiting hours. Information on how to activate the Rapid Response Team has been discussed. Patient/Family are encouraged to report perceived risks to care and to ask questions if they do not understand what they are told or what they should do.
--- NOTE | 2020-03-12 21:58 | PM.IMHP ---
H&P: HPI History of Present Illness Date/Time: 03/12/20 21:58 Chief Complaint: Shortness of breath Narrative: Patrice Howard is a 79 year old male Who was just discharged from [facility] yesterday with COVID-19. The patient was admitted on the and had physical therapy evaluation and seemed to do well he tested positive on 03/09/2020 and will be off quantity on 03/18/2020. The patient could not recall when his symptoms started. He lives with his and she is asymptomatic. The patient does not recall having an inhaler but it looks like his on his medication list. He has been on dexamethasone. The patient came back to the emergency room with shortness of breath. And he did take his dexamethasone today. Per family the patient was acting more confused today patient was found to be hypoxic and placed on supplemental oxygen. He was placed on 2 L per nasal cannula. But his H&H is 11.4 and 34.2 which has improved since yesterday. He does have a history of anemia and takes vitamin B12 injections. Arterial blood gases were obtained and his pH was 7.501 CO2 was 26.4 and PO2 67.7. Liver enzymes were within normal limits yesterday on dexamethasone the day that he was tested positive for COVID. Bilateral pulmonary infiltrates differential diagnosis include pneumonia and pulmonary edema. 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 No CT of the brain was performed today. Patient is being admitted to inpatient service is 03/12/2020 Review of Systems Review of Systems: All systems reviewed & are unremarkable except as noted in HPI and below Constitutional: Constitutional: Reports as per HPI and Reports no additional constitutional complaints Eyes: Eyes: Reports as per HPI and Reports no additional eye complaints ENT: Reports system reviewed and no additional complaints, except as documented and Reports Normal hearing present Cardiovascular: Cardiovascular: Reports no additional cardiovascular complaints Respiratory: Respiratory: Reports no additional respiratory complaints and Reports no additional respiratory complaints Gastrointestinal: Gastrointestinal: Reports as per HPI and Reports no additional gastrointestinal complaints Musculoskeletal: Musculoskeletal: Reports no additional musculoskeletal complaints Integumentary/Breasts: Skin/Breast: Reports system reviewed and no additional complaints, except as docu and Reports as per HPI Neurologic: Reports system reviewed and no additional complaints, except as documented, Reports as per HPI and Reports Normal hearing present Psychiatric: Psychiatric: Reports no additional psychiatric complaints and Reports as per HPI Endocrine: Endocrine: Reports no additional endocrine complaints Hematologic/Lymphatic: Hematologic/Lymphatic: Reports no additional hematologic/lymphatic complaints Allergic/Immunologic: Allergic/Immunologic: Reports no additional allergic/immunologic complaints [facility] Past Medical History Medical History (Updated 03/12/20 @ 22:18 by Raisa Carrillo NP) Anemia BPH (benign prostatic hyperplasia) Dyslipidemia History of CVA (cerebrovascular accident) Hypothyroidism Osteoarthritis Surgical History Surgical History (Updated 03/12/20 @ 22:18 by Raisa Carrillo NP) H/O bilateral cataract extraction H/O eye surgery Plate to left eye socket H/O knee surgery left H/O shoulder surgery bilateral Family History Family History Sibling Congestive heart failure Hypertension Acute myocardial infarction Social History Social History (Updated 03/12/20 @ 22:20 by Raisa Carrillo NP) Social History: The patient has 4 children and he is . He is retired from [employer]. The patient stated that his is the durable power transactional attorney for healthcare and he is a fu
[2020-03-12 23:26] LABS: Alanine Aminotransferase 30 U/L (4-50); Estimated CRCL calculation 62 ml/min; Estimated Glomerular Filt Rate > 60
[2020-03-13] VITALS (8 sets, daily range): BP systolic 90–153; BP diastolic 46–66; PULSE 63–72; RESP 18–20; TEMP 36.2–37.1; O2SAT 91–96
[2020-03-13] MEDS: REMDESIVIR 200 MG/NS 250 ML 200 MG/250 ML BAG 250 MG IVPB (00:44)
[2020-03-13] MEDS: LEVOTHYROXINE SODIUM 75 MCG TABLET PO (05:34)
[2020-03-13 06:28] LABS: Basophils Percent Auto 0.2 % (0.2-1.2); Hematocrit 33.5 % (42.0-52.0); Immature Granulocyte Absolute 0.04 K/mm3 (0.00-0.031); Immature Granulocyte Percent A 0.8 % (0-0.5); Lymphocytes Absolute Auto 0.76 K/mm3 (0.9-3.2); Lymphocytes Percent Auto 14.5 % (18.3-44.2); Mean Corpuscular HGB Conc 32.8 g/dl (32-36); Mean Corpuscular Hemoglobin 31.4 pg (26-34); Mean Corpuscular Volume 95.7 fl (80-100); Mean Platelet Volume 9.4 fl (7.4-10.4); Monocytes Absolute Auto 0.4 K/mm3 (0.1-0.6); Monocytes Percent Auto 8.4 % (2.6-8.5); Neutrophils Percent Auto 76.1 % (45.5-73.1); Platelet Count Result 214 k/mm3 (150-375); Red Cell Distribution Width 13.5 % (11.5-14.5); White Blood Count 5.2 K/mm3 (4.5-10.0)
[2020-03-13 06:39] LABS: Alanine Aminotransferase 30 U/L (4-50); Albumin Level 3.1 g/dL (3.5-5.1); Alkaline Phosphatase 59 U/L (38-126); Anion Gap 2 mmol/L (8-16); Aspartate Amino Transferase 28 U/L (17-59); Bilirubin,Total 0.4 mg/dL (0.2-1.3); Blood Urea Nitrogen 14 mg/dL (9-20); Calcium 7.8 mg/dL (8.4-10.2); Carbon Dioxide 27 mmol/L (22-30); Chloride 103 mmol/L (98-107); Estimated CRCL calculation 69 ml/min; Estimated Glomerular Filt Rate > 60; Glucose 110 mg/dL (75-110); Magnesium 1.8 mg/dL (1.6-2.3); Potassium 3.8 mmol/L (3.4-5.0); Sodium 132 mmol/L (137-145)
[2020-03-13 07:38] LABS: Thyroid Stimulating Hormone Reflex 0.221 uIU/mL (0.465-4.68)
[2020-03-13] MEDS: ENOXAPARIN 40 MG/0.4 ML SYRINGE SUB-Q ×2 (08:18→20:33)
[2020-03-13] MEDS: ATORVASTATIN 40 MG TABLET 80 MG PO (08:18)
[2020-03-13] MEDS: DEXAMETHASONE 2 MG TABLET 6 MG PO (08:18)
[2020-03-13] MEDS: TAMSULOSIN HCL 0.4 MG CAPSULE PO (08:19)
[2020-03-13] MEDS: diphenhydrAMINE HCl CAP 25 MG CAPSULE PO (10:11)
--- NOTE | 2020-03-13 10:44 | PM.IMPN ---
Progress Note: A&P Assessment and Plan (1) Acute respiratory failure with hypoxia: Code(s): J96.01 - Acute respiratory failure with hypoxia Status: Acute Assessment and Plan: Secondary to COVID-19 pneumonia with infiltrates worse on CXR performed 03/13 when compared to CXR findings at outside hospital 03/09/20. Continue treatment of COVID-19 with plan outlined below Continue supplemental oxygen as needed to maintain oxygen saturation >90% Will see how he responds to 20mg IV lasix as he did receive fluids in ER and last hospital stay (2) Pneumonia due to COVID-19 virus: Code(s): U07.1 - COVID-19; J12.82 - Pneumonia due to coronavirus disease 2019 Status: Acute Assessment and Plan: The patient developed progressive weakness and fever. He tested positive for COVID-19 03/09/20. CXR demonstrates extensive patchy bilateral pulmonary infiltrates. He is currently requiring 2 liters per nasal cannula. Blood cultures were obtained 03/09/20 at OSH and demonstrate NGTD. He received 1 dose of IV remdesivir overnight and developed hypersensitivity reaction with urticaria. Discontinue remdesivir. Continue dexamethasone (initiated 03/10/20 at [facility] - day 05/23) Continue supportive care with tylenol as needed for fever, albuterol per MDI as needed, expectorant Continue supplemental oxygen as needed to maintain oxygen saturation >90%, wean as tolerated Secondary bacterial infection is not suspected at this time clinically. WBC normal and he is afebrile. No significant cough. Monitor clinically. Check acute phase reactants (3) BPH (benign prostatic hyperplasia): Qualifiers: Lower urinary tract symptom detail: unspecified Code(s): N40.0 - Benign prostatic hyperplasia without lower urinary tract symptoms Status: Acute Assessment and Plan: Chronic with no acute issues. Continue tamsulosin (4) Anemia: Qualifiers: Anemia type: B12 deficiency Vitamin B12 deficiency anemia type: unspecified B12 deficiency Qualified Code(s): D51.9 - Vitamin B12 deficiency anemia, unspecified Code(s): D64.9 - Anemia, unspecified Status: Chronic Assessment and Plan: Chronic. H&H is consistent with baseline. He receives monthly cyanocobalamin injections which will be continued Continue to monitor and transfuse as needed to maintain Hb >7 (5) Dyslipidemia: Code(s): E78.5 - Hyperlipidemia, unspecified Status: Acute Assessment and Plan: LFTs are normal. Continue atorvastatin (6) Hypothyroidism: Qualifiers: Hypothyroidism type: unspecified Qualified Code(s): E03.9 - Hypothyroidism, unspecified Code(s): E03.9 - Hypothyroidism, unspecified Status: Acute Assessment and Plan: TSH is 0.221. Free T4 pending. Continue levothyroxine for now. Await free T4 and total T3. (7) Drug-induced hypersensitivity reaction: Code(s): T78.40XA - Allergy, unspecified, initial encounter Status: Acute Assessment and Plan: He developed urticaria following 1 dose of IV remdesivir. Continue benadryl Stop remdesivir (8) Tremor: Code(s): R25.1 - Tremor, unspecified Status: Acute Assessment and Plan: I was unable to observe tremor on exam today but nursing describes this as resting. Parkinson's disease is in the differential. I recommend he follow-up with neurology outpatient. Will defer to his PCP. (9) Physical deconditioning: Code(s): R53.81 - Other malaise Status: Acute Assessment and Plan: He notes generalized weakness. Likely secondary to acute COVID-19 illness and recent hospital stay. PT/OT evaluations will be appreciated Subjective Date/time seen: 03/13/20 10:44 Mr. Howard is an 79 y.o. male with PMH significant for hyperlipidemia, hypothyroidism, BPH, hx of CVA, an
[2020-03-13] MEDS: FUROSEMIDE INJ 40 MG/4 ML VIAL 20 MG IV PUSH (12:44)
[2020-03-13 12:51] LABS: Free T4 Free Thyroxine Reflex 1.68 ng/dL (0.78-2.19)
[2020-03-13 13:46] LABS: Total Triiodothyronine (T3) 0.71 NG/ML (0.97-1.69)
[2020-03-13] MEDS: guaiFENesin 12 HR 600 MG TABCR 1200 MG PO (20:33)
[2020-03-14] VITALS (10 sets, daily range): BP systolic 100–158; BP diastolic 46–59; PULSE 61–94; RESP 18–20; TEMP 36.3–37.1; O2SAT 90–98
--- NOTE | 2020-03-14 00:54 | PC.NURSE ---
PT'S SPOUSE, ALMA, UPDATED RE: PT CONDITION
[2020-03-14 06:14] LABS: Hematocrit 32.7 % (42.0-52.0); Immature Granulocyte Absolute 0.03 K/mm3 (0.00-0.031); Immature Granulocyte Percent A 0.6 % (0-0.5); Lymphocytes Absolute Auto 0.73 K/mm3 (0.9-3.2); Lymphocytes Percent Auto 15.6 % (18.3-44.2); Mean Corpuscular HGB Conc 33.6 g/dl (32-36); Mean Corpuscular Hemoglobin 32.1 pg (26-34); Mean Corpuscular Volume 95.3 fl (80-100); Mean Platelet Volume 9.6 fl (7.4-10.4); Monocytes Absolute Auto 0.3 K/mm3 (0.1-0.6); Monocytes Percent Auto 7.3 % (2.6-8.5); Neutrophils Absolute Auto 3.6 K/mm3 (1.3-6.7); Neutrophils Percent Auto 76.5 % (45.5-73.1); Platelet Count Result 205 k/mm3 (150-375); Red Blood Count 3.43 M/mm3 (4.6-6.20); Red Cell Distribution Width 13.4 % (11.5-14.5); White Blood Count 4.7 K/mm3 (4.5-10.0)
[2020-03-14] MEDS: LEVOTHYROXINE SODIUM 75 MCG TABLET PO (06:21)
[2020-03-14 07:25] LABS: Alanine Aminotransferase 33 U/L (4-50); Alkaline Phosphatase 63 U/L (38-126); Anion Gap 0 mmol/L (8-16); Aspartate Amino Transferase 33 U/L (17-59); Bilirubin,Total 0.5 mg/dL (0.2-1.3); Blood Urea Nitrogen 16 mg/dL (9-20); CRP 3.4 mg/dL (<1.0); Calcium 8.2 mg/dL (8.4-10.2); Carbon Dioxide 30 mmol/L (22-30); Chloride 101 mmol/L (98-107); Creatine Kinase 211 U/L (55-170); Estimated CRCL calculation 78 ml/min; Estimated Glomerular Filt Rate > 60; Glucose 114 mg/dL (75-110); Lactate Dehydrogenase 474 U/L (313-618); Magnesium 1.9 mg/dL (1.6-2.3); Potassium 3.5 mmol/L (3.4-5.0); Sodium 131 mmol/L (137-145)
[2020-03-14] MEDS: ENOXAPARIN 40 MG/0.4 ML SYRINGE SUB-Q (08:37)
[2020-03-14] MEDS: guaiFENesin 12 HR 600 MG TABCR 1200 MG PO (08:37)
[2020-03-14] MEDS: diphenhydrAMINE HCl CAP 25 MG CAPSULE PO (08:38)
[2020-03-14] MEDS: ATORVASTATIN 40 MG TABLET 80 MG PO (08:38)
[2020-03-14] MEDS: DEXAMETHASONE 2 MG TABLET 6 MG PO (08:38)
[2020-03-14] MEDS: TAMSULOSIN HCL 0.4 MG CAPSULE PO (08:38)
--- NOTE | 2020-03-14 12:19 | HOMEO2EVAL ---
Home Oxygen Evaluation RC: Home Oxygen (O2) Evaluation Start: 03/14/20 08:07 Freq: ONCE Status: Active Protocol: RPE Activity Type Activity Date Activity User E-Sign Co-Sign Detail Recorded Client Recorded Date Recorded By Document 03/14/20 11:00 RES [email or web address] 03/14/20 12:19 RES Document 03/14/20 11:02 RES [email or web address] 03/14/20 12:19 RES Document 03/14/20 11:04 RES [email or web address] 03/14/20 12:19 RES Document 03/14/20 11:06 RES [email or web address] 03/14/20 12:19 RES 03/14/20 03/14/20 03/14/20 11:00 11:02 11:04 Home O2 Evaluation Test Phase Resting Exercise Exercise Oxygen Delivery Room Air Room Air Room Air Fraction of Inspired Oxygen (%) 21 21 Pulse Oximetry (90-100 %) 93 92 90 Pulse Rate (60-100 beats/min) 88 88 92 Activity Tolerance Good Good Good Home Oxygen Evaluation Comments pt sitting in pt walked to bed on room air the door of his . Not SOB and room and then has been on to the window 2 room air for 30 times. pt isnt min now. SOB. He states he doesnt walk far at home. Treatment Charges O2 Evaluation 03/14/20 11:06 Home O2 Evaluation Test Phase Resting Oxygen Delivery Room Air Fraction of Inspired Oxygen (%) 21 Pulse Oximetry (90-100 %) 92 Pulse Rate (60-100 beats/min) 94 Activity Tolerance Good Home Oxygen Evaluation Comments pt back in bed at this time. He doesnt need home O2 at this time. and RN are aware. Treatment Charges
--- NOTE | 2020-03-14 12:46 | PM.DS ---
DS: Admitting Diagnosis Admitting Diagnosis Admitting Diagnosis: COVID-19 pneumonia DS: Discharge Diagnosis Discharge Diagnosis (1) Pneumonia due to COVID-19 virus: Code(s): U07.1 - COVID-19; J12.82 - Pneumonia due to coronavirus disease 2019 Status: Acute Assessment and Plan: Discharge Summary (Date of service 03/14/20): Mr. Howard is an 79 y.o. male with PMH significant for hyperlipidemia, hypothyroidism, BPH, hx of CVA, and chronic anemia with vitamin b12 deficiency who presented to the emergency department 03/12/20 for the evaluation of shortness of breath and was noted to be hypoxic and placed on 4 liters per nasal cannula in the emergency department. He was recently hospitalized at [facility] and tested positive for COVID-19 on 03/09/20. Dexamethasone was initiated 03/10/20 at OSH. He did require 2 liters during his previous hospital stay but he was weaned to room air on 03/11/20 and discharged on oral dexamethasone. In the emergency department on 03/12/20 at [facility], CXR demonstrated extensive patchy bilateral pulmonary infiltrates. He was treated with IV remdesivir and admitted to the hospitalist service. Dexamethasone was continued. He developed urticaria following remdesivir so this was discontinued and added to his allergy list. He was weaned to room air while inpatient and felt much better overall. He was no longer requiring inpatient care and he was felt stable for discharge on 03/14/20. He was discharged in hemodynamically stable condition. Worrisome signs and symptoms which would warrant return to the emergency department were discussed. (2) Acute respiratory failure with hypoxia: Code(s): J96.01 - Acute respiratory failure with hypoxia Status: Resolved Assessment and Plan: Resolved. Secondary to COVID-19 pneumonia with infiltrates worse on CXR performed 03/13 when compared to CXR findings at outside hospital 03/09/20. He was weaned to room air prior to discharge and did not require home oxygen on home oxygen evaluation. (3) BPH (benign prostatic hyperplasia): Qualifiers: Lower urinary tract symptom detail: unspecified Code(s): N40.0 - Benign prostatic hyperplasia without lower urinary tract symptoms Status: Acute Assessment and Plan: Chronic with no acute issues. Tamsulosin was continued. (4) Anemia: Qualifiers: Anemia type: B12 deficiency Vitamin B12 deficiency anemia type: unspecified B12 deficiency Qualified Code(s): D51.9 - Vitamin B12 deficiency anemia, unspecified Code(s): D64.9 - Anemia, unspecified Status: Chronic Assessment and Plan: Chronic. H&H is consistent with baseline. Cyanocobalamin was continued at discharge. (5) Dyslipidemia: Code(s): E78.5 - Hyperlipidemia, unspecified Status: Acute Assessment and Plan: LFTs are normal. Atorvastatin was continued. (6) Hypothyroidism: Qualifiers: Hypothyroidism type: unspecified Qualified Code(s): E03.9 - Hypothyroidism, unspecified Code(s): E03.9 - Hypothyroidism, unspecified Status: Acute Assessment and Plan: TSH is 0.221. Free T4 normal at 1.68 and total T3 0.71. Recommend repeat thyroid function testing in 4 weeks and further dose adjustments as recommended outpatient. (7) Drug-induced hypersensitivity reaction: Code(s): T78.40XA - Allergy, unspecified, initial encounter Status: Acute Assessment and Plan: He developed urticaria following 1 dose of IV remdesivir. IV remdesivir was discontinued and added to his allergy list. Benadryl was continued as needed at discharge. (8) Tremor: Code(s): R25.1 - Tremor, unspecified Status: Acute Assessment and Plan: I was unable to observe tremor on exam today but nursing describes this as resting. Parkinson's disease is in the differential. I recommend he follow-up with brii
== END 2020-03-14 14:30 | disposition home health service (06) | DRG 177 ==
LOC: ANHED 17:27 → ANH3MEDSUR 18:13
PROVIDERS: Nurse Practitioner; Admitting Provider Family Medicine; Emergency Provider Emergency Medicine; PCP Family Medicine; Visit Provider Physician Assistant
DX: U07.1 COVID-19 (principal); J12.82 Pneumonia due to coronavirus disease 2019; J96.01 Acute respiratory failure with hypoxia; R53.81 Other malaise; N40.0 Benign prostatic hyperplasia without lower urinary tract symptoms; D51.9 Vitamin B12 deficiency anemia, unspecified; R25.1 Tremor, unspecified; E86.0 Dehydration; E78.5 Hyperlipidemia, unspecified; E03.9 Hypothyroidism, unspecified; M19.90 Unspecified osteoarthritis, unspecified site; L50.9 Urticaria, unspecified; T37.5X5A Adverse effect of antiviral drugs, initial encounter; Z79.899 Other long term (current) drug therapy; Z86.73 Personal history of transient ischemic attack (TIA), and cerebral infarction without residual deficits; Z87.891 Personal history of nicotine dependence
CPT/HCPCS: 36415; 36600; 71045; 80048; 80053; 81001; 82550; 82565; 82728; 82805; 83615; 83735; 84439; 84443; 84460; 84480; 85025; 86140; 93005; 94618; 97161; 97165; 97535; 99285; A9270; G0378; J1650; J1940; J7030; J8540